=== PATIENT | male | born 2005 | race Caucasian/White ===

== ENCOUNTER 2024-01-08 13:09 | Outpatient (REF) | payer BC, SELFPAY ==
--- NOTE | ~2024-01-08 | MR_ITS ---
EXAMINATION: MR KNEE WITHOUT CONTRAST, LEFT CLINICAL INFORMATION: Effusion, instability. COMPARISON: None available. TECHNIQUE: MRI of the knee without contrast was performed using routine sequences on a high-field scanner. FINDINGS: MENISCI: Medial Meniscus: Intact. Lateral Meniscus: Intact. LIGAMENTS: Cruciate: ACL: Postop changes related to anterior cruciate ligament reconstruction. There is at least partial discontinuity indicative of an incomplete versus complete tear of the reconstructed ligament. There may be some fibers still intact. PCL: Intact. Collateral: Intact. EXTENSOR MECHANISM: Intact. ARTICULAR CARTILAGE/BONE: Patellofemoral Compartment: Normal. Medial Compartment: There is subchondral bone marrow edema noted along the posterior margin of the medial plateau and medial weightbearing portion of the medial femoral condyle compatible with bone contusions. Lateral Compartment: There is subchondral bone marrow edema noted in the sulcus terminalis of the femur and posterior aspect of the lateral plateau compatible with areas of bone contusion. Overlying articular cartilage intact. JOINT FLUID AND BURSAE: There is a moderate joint effusion and mild synovitis. MR/MR knee LT wo con IMPRESSION: 1. Postop changes related to anterior cruciate ligament reconstruction. 2. Incomplete versus complete tear of the reconstructed ligament. 3. Bone contusion pattern consistent with acute ACL injury. 4. Joint effusion and synovitis.
== END 2024-01-08 13:10 | disposition home or self-care (01) ==
LOC: HO.MRI 13:09
PROVIDERS: Visit Provider Student in an Organized Health Care Education/Training Program
DX: M25.462 Effusion, left knee (principal); M25.362 Other instability, left knee
CPT/HCPCS: 73721